=== PATIENT | female | born 1995 | race American Indian/Alaskan Native ===

== ENCOUNTER 2016-12-20 11:11 | Emergency (ER) | payer SELFPAY ==
[2016-12-20 11:27] VITALS: BP 100/72
[2016-12-20 12:00] LABS: Basophils % (Auto) 0.6 % (0.0-1.8); Eosinophils % (Auto) 3.4 % (0.0-4.3); Hematocrit 38.6 % (30.3-42.9); Hemoglobin 13.1 gm/dl (10.1-14.3); Mean Corpuscular HGB Conc 34 % (30-34); Mean Corpuscular Hemoglobin 27 pg (28-32); Mean Corpuscular Volume 80 fl (79-97); Platelet Count 216 K/mm3 (140-440); Red Blood Count 4.84 M/mm3 (3.65-5.03); Red Cell Distribution Width 13.3 % (13.2-15.2); White Blood Count 5.6 K/mm3 (4.5-11.0)
[2016-12-20 12:08] LABS: Alanine Aminotransferase 18 units/L (7-56); Alkaline Phosphatase 86 units/L (35-129); Anion Gap 14 mmol/L; BUN/Creatinine Ratio 11.66; Bilirubin,Total 0.2 mg/dL (0.1-1.2); Blood Urea Nitrogen 7 mg/dL (7-17); Calcium 8.8 mg/dL (8.4-10.2); Carbon Dioxide 27 mmol/L (22-30); Chloride 102.4 mmol/L (98-107); Glucose 87 mg/dL (65-100); Lipase 24 units/L (13-60); Potassium 3.4 mmol/L (3.6-5.0); Sodium 140 mmol/L (137-145); Total Protein 7.1 g/dL (6.3-8.2)
[2016-12-20 12:52] LABS: Albumin/Globulin Ratio 1.3 %
[2016-12-20 13:28] LABS: Bilirubin,Urine NEG (Negative); Blood,Urine LG (Negative); Ketones,Urine NEG (Negative); Leukocyte Esterase,Urine TR (Negative); Nitrite,Urine NEG (Negative); Protein,Urine <15 mg/dL mg/dL (Negative); Urobilinogen,Urine < 2.0 mg/dL (<2.0)
[2016-12-20 13:44] LABS: Bacteria,Urine 2+ /HPF (Negative)
== END 2016-12-20 12:54 | disposition left against medical advice (07) ==
LOC: ED 11:11
DX: R10.30 Lower abdominal pain, unspecified (principal); Z53.21 Procedure and treatment not carried out due to patient leaving prior to being seen by health care provider
CPT/HCPCS: 36415; 80053; 81001; 81025; 83690; 85025

== ENCOUNTER 2019-02-05 08:50 | Outpatient (CLI) | payer MEDICAID ==
--- NOTE | 2019-02-05 13:45 | Ultrasound Report ---
ULTRASOUND OB LESS THAN 14 WEEKS FETUS ULTRASOUND OB TRANSVAGINAL History: Pelvic pain. Findings: Transabdominal and transvaginal ultrasound imaging was performed. The uterus is anteverted and measures 7 x 4 x 4 centimeters. The endometrial stripe measures 5 mm in thickness. No intrauterine is visualized. The ovaries are normal size, contour and echotexture. No adnexal cyst or mass. No pelvic fluid collection. IMPRESSION: No intrauterine is visualized. Unremarkable ultrasound of the pelvis.
== END 2019-02-05 08:51 | disposition home or self-care (01) ==
LOC: US 08:50
PROVIDERS: ATTEND Obstetrics & Gynecology
DX: R10.2 Pelvic and perineal pain (principal)
CPT/HCPCS: 76801; 76817